=== PATIENT | female | born 1940 | race Caucasian/White ===

== ENCOUNTER → 2017-09-06 | Outpatient (CLI) | payer MEDICARE ==
[~2017-09-06] MED LIST: ALLO300; ASCO1ER; DESO.25TC; DULO30; FISH1000; GABA300; GLUCHON; GUAN1; HYDACE5; IBUP200; LEVFLO500 PO; PHENDIMETRAZINE; POTASSIUM GLUCONATE; POTCHL20ER PO; PSECHLCR; RXPROM25 PO; RXPROM25S PR; SEMPREX D; TOCO400; TRIHYD253A; VITB100; Vibramycin100 MG PO; ZOLP10; [UNRECOGNIZED DRUG - OTHER]; [UNRECOGNIZED DRUG - OTHER]; [UNRECOGNIZED DRUG - OTHER]
[2017-09-06 14:55] LABS: Source, Urine Clean Catch
[2017-09-06 16:00] LABS: Bilirubin, Urine Neg (Neg); Blood, Urine Neg (Neg); Glucose Qualitative, Urine Neg (Neg); Ketones, Urine Neg (Neg); Leukocyte Esterase, Urine 2+ (Neg); Nitrite, Urine Pos (Neg); Protein, Urine Neg (Neg); Urobilinogen, Urine NORM (Normal)
[2017-09-06 16:05] LABS: Appearance, Urine Clear (Clear); Color, Urine Yellow (P-Yellow)
[2017-09-06 16:06] LABS: Bacteria Many /hpf; Red Blood Cells, Urine 0-2 /hpf (0-2); Squamous Epithelial Cells Rare /hpf (Few)
[2017-09-06 17:50] LABS: Creatinine, Urine Random 49.4 mg/dL (27.00-270.00); Protein, Urine Random 11.2 mg/dL (0.0-11.9)
== END ==
LOC: OLS 14:26 → LAB SHORT 14:26
PROVIDERS: Internal Medicine
DX: N17.9 Acute kidney failure, unspecified (principal)
CPT/HCPCS: 81001; 82570; 84156

== ENCOUNTER 2020-01-29 09:04 | Inpatient (IN) | payer MEDICARE ==
[~2020-01-29] VITALS: Ht 167.6 cm; Wt 77.5 kg
[~2020-01-29 09:04] MED LIST changes: -ALLO300; -DULO30; -GABA300
[2020-01-29 10:03] LABS: BASOPHILS ABSOLUTE AUTO 0.06 K/mm3 (0.00-0.23); BASOPHILS PERCENT AUTO 0 % (0-2); EOSINOPHILS PERCENT AUTO 0 % (0-6); Hematocrit 41.1 % (33.0-51.0); Hemoglobin 13.1 g/dL (11.5-16.0); IMMATURE GRAN PERCENT AUTO 1 % (0-1); LYMPHOCYTES ABSOLUTE AUTO 1.44 K/mm3 (0.84-5.20); LYMPHOCYTES PERCENT AUTO 5 % (21-46); MONOCYTES ABSOLUTE AUTO 2.71 K/mm3 (0.16-1.47); MONOCYTES PERCENT AUTO 9 % (4-13); Mean Corpuscular HGB Conc 31.9 g/dL (31.5-36.5); Mean Corpuscular Volume 97 fL (80-100); Mean Platelet Volume 10.3 fL (9.1-12.4); NEUTROPHILS ABSOLUTE AUTO 26.98 K/mm3 (1.96-9.15); NEUTROPHILS PERCENT AUTO 86 % (41-73); Platelet Count 265 K/mm3 (150-400); RDW Coefficient Variation 14.5 % (11.7-14.2); RDW Standard Deviation 51.8 fL (35.1-46.3); Red Blood Cell Count 4.22 M/mm3 (3.80-5.20); White Blood Cell Count 31.39 K/mm3 (4.00-11.30)
[2020-01-29 10:34] LABS: Albumin, Blood 3.3 g/dL (3.4-5.0); Albumin/Globulin Ratio 0.8 (0.8-1.8); Bilirubin, Total 1.9 mg/dL (0.1-1.0); Bun/Creatinine Ratio 23.7 (12.0-20.0); Calcium, Blood 9.8 mg/dL (8.5-10.1); Creatine Kinase MB 8.9 ng/mL (0.0-3.6); Creatinine, Blood 1.35 mg/dL (0.40-1.00); Globulin, Blood 3.9 g/dL (2.2-4.0); Potassium, Blood 4.2 mmol/L (3.5-5.5); Total Protein, Blood 7.2 g/dL (6.4-8.2)
[2020-01-29 10:36] LABS: Creatine Kinase MB Index 0.6 (0.0-4.0)
[2020-01-29 12:19] LABS: Source, Urine Clean Catch
[2020-01-29 12:24] LABS: Appearance, Urine Cloudy (Clear); Bilirubin, Urine Neg (Neg); Blood, Urine 5+ (Neg); Color, Urine Yellow (P-Yellow); Glucose Qualitative, Urine Neg (Neg); Ketones, Urine 1+ (Neg); Leukocyte Esterase, Urine 1+ (Neg); Nitrite, Urine Pos (Neg); Protein, Urine 3+ (Neg); Urobilinogen, Urine NORM (Normal)
[2020-01-29 12:38] LABS: Amorphous Light (0-Heavy); Bacteria Many /hpf; Squamous Epithelial Cells Mod /hpf (Few)
--- NOTE | 2020-01-29 12:58 | NUR ---
Upon responding to a trauma team activation, I visit patient. Daughter Harmony is present in the room as well as patient's home care scheduler. I conduct a a life review of patient and via Harmony and provide reassuring words to patient as patient appears fearful and confused. I provide a calming presence for all in the rm. I will continue to remain available to patient and family.
[2020-01-29] MEDS ORDERED: DULO30 PO (13:05)
[2020-01-29] MEDS ORDERED: ALLEGRA-D 12 H1 EACH PO (13:05)
[2020-01-29] MEDS ORDERED: TELMISARTAN20 MG PO (13:06)
[2020-01-29] MEDS ORDERED: ALLO300 PO (13:07)
[2020-01-29] MEDS ORDERED: ATORVASTATIN CA20 MG PO (13:10)
[2020-01-29] MEDS ORDERED: TRAMADOL PO (13:10)
[2020-01-29] MEDS ORDERED: ACETAMINOPHEN PO (13:10)
[2020-01-29] MEDS ORDERED: GABA300 PO (13:11)
[2020-01-29] MEDS ORDERED: FLUTICASONE PRO16 GM (13:12)
[2020-01-29 17:31] LABS: Source, Urine Catheter
[2020-01-29 17:35] LABS: Bilirubin, Urine Neg (Neg); Blood, Urine 5+ (Neg); Glucose Qualitative, Urine Neg (Neg); Ketones, Urine Neg (Neg); Leukocyte Esterase, Urine 1+ (Neg); Nitrite, Urine Pos (Neg); Protein, Urine 3+ (Neg); Urobilinogen, Urine NORM (Normal)
[2020-01-29 17:42] LABS: Appearance, Urine Hazy (Clear); Color, Urine Yellow (P-Yellow)
[2020-01-29 17:50] LABS: Bacteria Mod /hpf; Red Blood Cells, Urine 50-100 /hpf (0-2); Squamous Epithelial Cells Rare /hpf (Few)
[2020-01-30 04:29] LABS: BASOPHILS ABSOLUTE AUTO 0.06 K/mm3 (0.00-0.23); BASOPHILS PERCENT AUTO 0 % (0-2); EOSINOPHILS ABSOLUTE AUTO 0.02 K/mm3 (0.00-0.68); EOSINOPHILS PERCENT AUTO 0 % (0-6); Hematocrit 37.3 % (33.0-51.0); Hemoglobin 11.7 g/dL (11.5-16.0); IMMATURE GRAN PERCENT AUTO 0 % (0-1); LYMPHOCYTES PERCENT AUTO 9 % (21-46); MONOCYTES ABSOLUTE AUTO 1.43 K/mm3 (0.16-1.47); MONOCYTES PERCENT AUTO 6 % (4-13); Mean Corpuscular HGB 30.5 pg (26.0-34.0); Mean Corpuscular HGB Conc 31.4 g/dL (31.5-36.5); Mean Corpuscular Volume 97 fL (80-100); Mean Platelet Volume 10.3 fL (9.1-12.4); NEUTROPHILS ABSOLUTE AUTO 18.92 K/mm3 (1.96-9.15); NEUTROPHILS PERCENT AUTO 84 % (41-73); Platelet Count 228 K/mm3 (150-400); RDW Coefficient Variation 14.6 % (11.7-14.2); RDW Standard Deviation 52.2 fL (35.1-46.3); Red Blood Cell Count 3.84 M/mm3 (3.80-5.20); White Blood Cell Count 22.43 K/mm3 (4.00-11.30)
[2020-01-30 04:54] LABS: Albumin, Blood 2.7 g/dL (3.4-5.0); Albumin/Globulin Ratio 0.8 (0.8-1.8); Bilirubin, Total 1.2 mg/dL (0.1-1.0); Bun/Creatinine Ratio 22.3 (12.0-20.0); Calcium, Blood 8.6 mg/dL (8.5-10.1); Creatinine, Blood 1.12 mg/dL (0.40-1.00); Globulin, Blood 3.3 g/dL (2.2-4.0); Potassium, Blood 3.4 mmol/L (3.5-5.5)
--- NOTE | 2020-01-30 04:59 | NUR ---
ASSUMED CARE OF PATIENT AT 1915. PATIENT ONLY ALERT TO SELF. PATIENT STATES THAT SHE IS UNAWARE OF THE EVNTS THAT LED TO HER HOSPITILIZATION. CONCERN FOR RHABDO DUE TO INJURIES, HERZOG IN PLACE FOR ACCURATE I/O'S. EDUCATED PATIENT ON NEED FOR CALL LIGHT FOR ANY AMBULATION DUE TO WEAKNESS AND RISK FOR FALLS. CALL LIGHT WITHIN REACH, BED LOWERED TO LOWEST POSITION. WILL CONTINUE TO MONITOR UNTIL END OF SHIFT.
--- NOTE | 2020-01-30 08:00 | NUR ---
AM ASSESSMENT: Pt resting in bed. Oriented to self, family and knows she is in a hospital. Unsure of place, time and situation. Pt very cooperative. HR tachycardic in the 110's. BP elevated. Will inform physician. Pt C/O back and R side pain. Will treat per orders. Pt has multiple bruises over extrimeties, back, side. Abrasion noted on R knee. Pt bed alarm on. Carreon cath draining clear, yellow urine. Will continue to monitor and treat.
--- NOTE | 2020-01-30 12:46 | NUR ---
Report given to Rebecca FRIEDMAN. Pt to be transfered to room 339. Pt worked with PT, and [facility] at bedside. Will transfer via bed. Stable at time of transfer.
--- NOTE | 2020-01-30 16:18 | NUR ---
SHIFT SUMMARY PCU TRANSFER THIS AFTERNOON. PATIENT DENIES PAIN, NAUSEA, AND SHORTNESS OF BREATH. PATIENT PAINFUL WITH MOVEMENT. PATIENT UP ONE ASSIST WITH GAIT BELT AND FWW TO CHAIR. DAUGHTER AT BEDSIDE. HERZOG PATENT AND DRAINING. PATIENT RESTING IN BED. CALL LIGHT IN REACH.
--- NOTE | 2020-01-31 04:43 | NUR ---
SHIFT SUMMARY PT HAS RESTED WELL THIS SHIFT. MEDICATED X1 FOR PAIN WITH TYLENOL. SHE CONTINUES TO BE PAINFUL WITH VERY LITTLE MOVEMENT. THIS SHIFT SHE REPORTED PAIN IN HER SHOULDER BLADES. TYLENOL ADEQUATELY CONTROLLED HER PAIN. PT IS A/OX3, HOWEVER SHE CONTINUES TO HAVE NO RECOLLECTION OF EVENTS LEADING UP TO HER HOSPITLIZATION. NO ACUTE CHANGES OVERNIGHT. PT PLESANT WITH CARE, AND APPRECIATIVE OF THE CARE SHE HAS RECEIVED WHILE HERE.
[2020-01-31 05:25] LABS: BASOPHILS ABSOLUTE AUTO 0.06 K/mm3 (0.00-0.23); BASOPHILS PERCENT AUTO 0 % (0-2); EOSINOPHILS ABSOLUTE AUTO 0.28 K/mm3 (0.00-0.68); EOSINOPHILS PERCENT AUTO 2 % (0-6); Hematocrit 34.8 % (33.0-51.0); Hemoglobin 10.9 g/dL (11.5-16.0); IMMATURE GRAN ABSOLUTE AUTO 0.07 K/mm3 (0.00-0.10); IMMATURE GRAN PERCENT AUTO 1 % (0-1); LYMPHOCYTES ABSOLUTE AUTO 2.16 K/mm3 (0.84-5.20); LYMPHOCYTES PERCENT AUTO 14 % (21-46); MONOCYTES ABSOLUTE AUTO 1.36 K/mm3 (0.16-1.47); MONOCYTES PERCENT AUTO 9 % (4-13); Mean Corpuscular HGB Conc 31.3 g/dL (31.5-36.5); Mean Corpuscular Volume 99 fL (80-100); Mean Platelet Volume 10.3 fL (9.1-12.4); NEUTROPHILS ABSOLUTE AUTO 11.35 K/mm3 (1.96-9.15); NEUTROPHILS PERCENT AUTO 74 % (41-73); NRBC ABSOLUTE 0.03 K/mm3 (0.00-0.02); NRBC Auto 0.2 /100 WBC (0.0-0.2); Platelet Count 196 K/mm3 (150-400); RDW Coefficient Variation 14.9 % (11.7-14.2); RDW Standard Deviation 53.7 fL (35.1-46.3); Red Blood Cell Count 3.52 M/mm3 (3.80-5.20); White Blood Cell Count 15.28 K/mm3 (4.00-11.30)
[2020-01-31 05:48] LABS: Albumin, Blood 2.4 g/dL (3.4-5.0); Anion Gap 8 mmol/L (6-16); Blood Urea Nitrogen 25 mg/dL (8-24); CO2, Blood 25 mmol/L (21-32); CPK Creatine Kinase 226 U/L (26-193); Calcium, Blood 8.1 mg/dL (8.5-10.1); Chloride, Blood 108 mmol/L (98-108); Creatinine, Blood 1.25 mg/dL (0.40-1.00); Glomerular Filtration Rate 44 (60-); Glucose, Blood 109 mg/dL (70-99); Phosphorus, Blood 3.2 mg/dL (2.5-4.9); Potassium, Blood 3.9 mmol/L (3.5-5.5); Sodium, Blood 141 mmol/L (136-145)
--- NOTE | 2020-01-31 17:18 | NUR ---
SHIFT SUMMARY PATIENT MEDICATED X2 FOR PAIN THIS SHIFT. PATIENT DENIES NAUSEA AND SHORTNESS OF BREATH. PATIENT UP ONE ASSIST W/FWW TO CHAIR/BSC. PATIENT SAT IN RECLINER THIS AFTERNOON. DAUGHTER AT BEDSIDE. ROSENDA ROBERT. PROBABLE DISCHARGE TOMORROW. CALL LIGHT IN REACH.
--- NOTE | 2020-02-01 04:47 | NUR ---
SHIFT SUMMARY PT HAS RESTED MOST OF THE NIGHT. MEDICATED X1 FOR PAIN RELATED TO FALL WITH EFFECT. PT A/OX4. VITALS ARE TRENDING AROUND PT BASELINE. HYPERTENSIVE. PRN HYDRALYZINE ORDERED FOR SBP GREATER THAN 160. PT BP HAS NOT GONE OVER THIS NUMBER. PT HAS BEEN ABLE TO AMBULATE WITH 1 PA USING THE FWW TO THE BATHROOM. PT HAS TOLERATED AMBULATION WELL. PT AWOKE WITH SOME ANXIETY THIS SHIFT. AFTER TALKING WITH ALLANTENT, SHE SEEMED TO CALM. NO ACUTE CHANGES IN PT ASSESSMENT. PLAN IS FOR POSS DC TODAY.
[2020-02-01 05:35] LABS: BASOPHILS ABSOLUTE AUTO 0.05 K/mm3 (0.00-0.23); BASOPHILS PERCENT AUTO 0 % (0-2); EOSINOPHILS ABSOLUTE AUTO 0.42 K/mm3 (0.00-0.68); EOSINOPHILS PERCENT AUTO 3 % (0-6); Hemoglobin 11.6 g/dL (11.5-16.0); IMMATURE GRAN ABSOLUTE AUTO 0.05 K/mm3 (0.00-0.10); IMMATURE GRAN PERCENT AUTO 0 % (0-1); LYMPHOCYTES ABSOLUTE AUTO 1.76 K/mm3 (0.84-5.20); LYMPHOCYTES PERCENT AUTO 14 % (21-46); MONOCYTES ABSOLUTE AUTO 1.05 K/mm3 (0.16-1.47); MONOCYTES PERCENT AUTO 8 % (4-13); Mean Corpuscular HGB 30.6 pg (26.0-34.0); Mean Corpuscular HGB Conc 31.4 g/dL (31.5-36.5); Mean Corpuscular Volume 98 fL (80-100); Mean Platelet Volume 10.2 fL (9.1-12.4); NEUTROPHILS ABSOLUTE AUTO 9.33 K/mm3 (1.96-9.15); NEUTROPHILS PERCENT AUTO 74 % (41-73); Platelet Count 214 K/mm3 (150-400); RDW Coefficient Variation 14.6 % (11.7-14.2); RDW Standard Deviation 52.4 fL (35.1-46.3); Red Blood Cell Count 3.79 M/mm3 (3.80-5.20); White Blood Cell Count 12.66 K/mm3 (4.00-11.30)
[2020-02-01 06:00] LABS: Albumin, Blood 2.4 g/dL (3.4-5.0); Anion Gap 8 mmol/L (6-16); Blood Urea Nitrogen 23 mg/dL (8-24); Bun/Creatinine Ratio 20.9 (12.0-20.0); CO2, Blood 26 mmol/L (21-32); Chloride, Blood 106 mmol/L (98-108); Glomerular Filtration Rate 51 (60-); Glucose, Blood 112 mg/dL (70-99); Phosphorus, Blood 3.2 mg/dL (2.5-4.9); Potassium, Blood 3.9 mmol/L (3.5-5.5); Sodium, Blood 140 mmol/L (136-145)
--- NOTE | 2020-02-01 12:00 | NUR ---
Advance Directive Education/Spiritual Care visit conducted. Patient has ancillary services working with her but patient's daughter Harmony came out of patient's to talk with me. We discussed the mystery surrounding the events that happened at patient's house prior to her hospital stay and that no new information has arisen. Harmony talked with me about her interest in filling out an Advance Directive(AD) for her mom and her step father. I explain about the sections and the filing process. I will continue to remain available to patient and family.
--- NOTE | 2020-02-01 16:04 | NUR ---
SHIFT SUMMARY- PT ALERT AND ORIENTED, 1P SBA TO THE BATHROOM AND WITH TRANSFERS. PT C/O SOME CONFUSION THIS MORNING. PT DENIED THE NEED FOR ANY PAIN OR NAUSEA MEDICATIONS FOR MOST OF THE DAY AT THE START OF THE SHIFT SHE C/O NAUSEA, PROVIDED SALTINE CRACKERS PT DID NOT WANT MEDICATION AND THIS HELPED. THIS AFTERNOON PT C/O TERRIBLE PAIN IN HER HEAD RATED 6/10 MEDICATED WITH TYLENOL PT REQUESTED NAUSEA MEDICATION AND WAS MEDICATED WITH IV ZOFRAN. CAME TO SEE HER FOR A SECOND TIME TODAY. PLAN IS FOR POSSIBLE DC TOMORROW. NEW ORDER FOR CHEST XR. CALLED DR ROBERTS SPOKE TO HER EARLIER IN THE SHIFT PLAN WAS FOR POSSIBLE DC HOME TODAY. PT BP ELEVATED 175/105 MEDICATED WITH PO BP MEDS RECHECK (1HR) 165/95. CALLED TO BE SURE IV MEDICATION WAS TO BE GIVEN AT THAT TIME D/T THE CURRENT PLAN FOR DC HOME. STATED USE IV MEDICATION AND RECHECK BP IN 2 HOURS. BP RECHECK AT 1300 WAS 135/85. DR AWARE. FAMILY AND CAREGIVER HAVE BEEN AT THE BEDSIDE OFF AND ON THROUGH THE SHIFT PT SPOUSE IS IN ROOM 330 WAS FOUND DOWN BY THE SAME CAREGIVER WHO FOUND THE PT DOWN. PT CURRENTLY IN BED, CALL LIGHT IN REACH, BED ALARM FOR SAFETY. NO S&S OF DISTRESS NOTED. WILL CTM AND PASS ON TO NIGHT RN IN REPORT.
--- NOTE | 2020-02-01 19:30 | NUR ---
ASSUMED CARE RECEIVED REPORT FROM IDALIA ALMONTE. ASSUMED CARE OF PT. RESTING COMFORTABLY AT THIS TIME, NO S/S ACUTE DISTRESS NOTED. DENIES NEEDS. CALL LIGHT, POSSESSIONS IN REACH. WILL CONTINUE TO MONITOR.
--- NOTE | 2020-02-02 04:16 | NUR ---
SHIFT SUMMARY PT ASLEEP AT THIS TIME, NO S/S ACUTE DISTRESS NOTED. NO ACUTE CHANGES IN CONDITION T/O NIGHT, SLEPT T/O. VS STABLE. PAIN MANAGED WITH MEDS PER EMAR AND UNINTERRUPTED REST. CALL LIGHT, POSSESSIONS IN REACH, BED IN LOWEST POSITION. WILL CONTINUE TO MONITOR UNTIL DAY RN ASSUMES CARE.
[2020-02-02 05:01] LABS: BASOPHILS ABSOLUTE AUTO 0.06 K/mm3 (0.00-0.23); BASOPHILS PERCENT AUTO 1 % (0-2); EOSINOPHILS PERCENT AUTO 4 % (0-6); Hematocrit 36.9 % (33.0-51.0); Hemoglobin 11.7 g/dL (11.5-16.0); IMMATURE GRAN ABSOLUTE AUTO 0.03 K/mm3 (0.00-0.10); IMMATURE GRAN PERCENT AUTO 0 % (0-1); LYMPHOCYTES ABSOLUTE AUTO 1.86 K/mm3 (0.84-5.20); LYMPHOCYTES PERCENT AUTO 16 % (21-46); MONOCYTES ABSOLUTE AUTO 0.97 K/mm3 (0.16-1.47); MONOCYTES PERCENT AUTO 8 % (4-13); Mean Corpuscular HGB 31.1 pg (26.0-34.0); Mean Corpuscular HGB Conc 31.7 g/dL (31.5-36.5); Mean Corpuscular Volume 98 fL (80-100); NEUTROPHILS ABSOLUTE AUTO 8.19 K/mm3 (1.96-9.15); NEUTROPHILS PERCENT AUTO 71 % (41-73); Platelet Count 235 K/mm3 (150-400); RDW Coefficient Variation 14.7 % (11.7-14.2); RDW Standard Deviation 52.6 fL (35.1-46.3); Red Blood Cell Count 3.76 M/mm3 (3.80-5.20); White Blood Cell Count 11.51 K/mm3 (4.00-11.30)
[2020-02-02 05:21] LABS: Albumin, Blood 2.6 g/dL (3.4-5.0); Anion Gap 6 mmol/L (6-16); Blood Urea Nitrogen 18 mg/dL (8-24); CO2, Blood 28 mmol/L (21-32); Chloride, Blood 105 mmol/L (98-108); Creatinine, Blood 1.06 mg/dL (0.40-1.00); Glomerular Filtration Rate 53 (60-); Glucose, Blood 109 mg/dL (70-99); Phosphorus, Blood 3.8 mg/dL (2.5-4.9); Potassium, Blood 4.2 mmol/L (3.5-5.5); Sodium, Blood 139 mmol/L (136-145)
[2020-02-02] MEDS ORDERED: METO25 PO (12:17)
[2020-02-02] MEDS ORDERED: CEFU500T30 PO (12:20)
[2020-02-02] MEDS ORDERED: PROBIOTIC & AC1 EACH PO (12:23)
--- NOTE | 2020-02-02 15:42 | NUR ---
DISCHARGE NOTE: PATIENT DISCHARGED TO HOME. DAUGHTER WITH PATIENT, D/C INSTRUCTIONS REVIEWED WITH PATIENT AND DAUGHTER.
--- NOTE | 2020-02-02 17:45 | NUR ---
Pal care note: Met with pt's daughter Beatrice at her request to review and complete POLST/AD for her mom. Pt is being readied for d/c home today with family and cg. Maribel and I to review blank forms tomorrow so that family can complete together and review with pt's PCP at her next appointment. Gave maribel instructions to make sure all pt's drs had a copy and hospital provided with a copy once completed. Maribel states her mom would want full treatment, full code. Maribel assured that pt's current orders are in agreement with her wishes. I also gave maribel booklet "Hard choices for loving people" to review before our next meeting to help generate questions and discuss advanced care planning tomorrow.
== END 2020-02-02 15:30 | disposition home or self-care (01) | DRG 871 ==
LOC: ER 09:04 → PCU 15:47 → MEDS 16:02 → PCU 17:12 → MEDS 01-30 13:45
PROVIDERS: Emergency Medicine; Family Medicine; Nurse Practitioner Acute Care; ADMIT Hospitalist
DX: A41.51 Sepsis due to Escherichia coli [E. coli] (principal); G92 Toxic encephalopathy; N39.0 Urinary tract infection, site not specified; M62.82 Rhabdomyolysis; E86.0 Dehydration; E87.6 Hypokalemia; M19.90 Unspecified osteoarthritis, unspecified site; N18.3 Chronic kidney disease, stage 3 (moderate); I12.9 Hypertensive chronic kidney disease with stage 1 through stage 4 chronic kidney disease, or unspecified chronic kidney disease; E78.5 Hyperlipidemia, unspecified; E07.9 Disorder of thyroid, unspecified; R29.6 Repeated falls; Z91.81 History of falling; S32.039D Unspecified fracture of third lumbar vertebra, subsequent encounter for fracture with routine healing
CPT/HCPCS: 36415; 70450; 70496; 70498; 71046; 72080; 72125; 80053; 80069; 81001; 82550; 82553; 83605; 84443; 85025; 87040; 87077; 87086; 87186; 92523; 93005; 93010; 96361; 96365-59; 97110; 97116; 97162; 97166; 97530; 99285-25; A9270; A9270-GY; J0360; J0696; J2405; J7030; J7120; P9612; Q9967

== ENCOUNTER → 2020-06-21 | Outpatient (CLI) | payer MEDICARE ==
[~2020-06-21] MED LIST changes: +ACETAMINOPHEN PO; +ALLEGRA-D 12 H1 EACH PO; +ALLO300 PO; +ATORVASTATIN CA20 MG PO; +CEFU500T30 PO; +DULO30 PO; +FLUTICASONE PRO16 GM; +GABA300 PO; +METO25 PO; +PROBIOTIC & AC1 EACH PO; +TELMISARTAN20 MG PO; +TRAMADOL PO
== END ==
LOC: LAB EV 16:51
DX: N18.30 Chronic kidney disease, stage 3 unspecified (principal)
CPT/HCPCS: 84156

== ENCOUNTER 2022-01-22 18:49 | Observation (INO) | payer MEDICARE ==
[~2022-01-22] VITALS: Ht 162.6 cm; Wt 79.0 kg
[2022-01-22 19:04] LABS: BASOPHILS ABSOLUTE AUTO 0.04 K/mm3 (0.00-0.23); BASOPHILS PERCENT AUTO 0 % (0-2); EOSINOPHILS ABSOLUTE AUTO 0.48 K/mm3 (0.00-0.68); EOSINOPHILS PERCENT AUTO 4 % (0-6); Hematocrit 36.7 % (33.0-51.0); Hemoglobin 11.7 g/dL (11.5-16.0); IMMATURE GRAN ABSOLUTE AUTO 0.05 K/mm3 (0.00-0.10); IMMATURE GRAN PERCENT AUTO 0 % (0-1); LYMPHOCYTES ABSOLUTE AUTO 1.86 K/mm3 (0.84-5.20); LYMPHOCYTES PERCENT AUTO 14 % (21-46); MONOCYTES ABSOLUTE AUTO 0.86 K/mm3 (0.16-1.47); MONOCYTES PERCENT AUTO 6 % (4-13); Mean Corpuscular HGB 30.9 pg (26.0-34.0); Mean Corpuscular HGB Conc 31.9 g/dL (31.5-36.5); Mean Corpuscular Volume 97 fL (80-100); Mean Platelet Volume 10.5 fL (9.1-12.4); NEUTROPHILS ABSOLUTE AUTO 10.46 K/mm3 (1.96-9.15); NEUTROPHILS PERCENT AUTO 76 % (41-73); Platelet Count 217 K/mm3 (150-400); RDW Coefficient Variation 14.9 % (11.7-14.2); RDW Standard Deviation 53.2 fL (35.1-46.3); Red Blood Cell Count 3.79 M/mm3 (3.80-5.20); White Blood Cell Count 13.75 K/mm3 (4.00-11.30)
[2022-01-22 19:35] LABS: International Normalized Ratio 0.93; Prothrombin Time Results 9.8 Sec (9.7-11.5)
[2022-01-22] MEDS ORDERED: TELM20 PO (19:57)
[2022-01-22] MEDS ORDERED: ALLO300 PO (19:58)
[2022-01-22] MEDS ORDERED: LEVOCETIRIZINE D5 MG PO (19:58)
[2022-01-22] MEDS ORDERED: DESV50 PO (19:59)
[2022-01-22] MEDS ORDERED: VITAMIN C D PO (20:00)
[2022-01-22] MEDS ORDERED: GLUCOSAMINE PO (20:00)
[2022-01-22] MEDS ORDERED: METO50ER PO (20:01)
[2022-01-22] MEDS ORDERED: ATOR20 PO (20:01)
[2022-01-22] MEDS ORDERED: IPRATROPIUM BRO30 ML (20:01)
[2022-01-22] MEDS ORDERED: GABA300 PO (20:02)
[2022-01-22] MEDS ORDERED: CEFP500 PO (20:04)
[2022-01-22] MEDS ORDERED: CODEINE-GUAIFE120 M1 PO (20:04)
[2022-01-22 20:44] LABS: Albumin, Blood 2.9 g/dL (3.4-5.0); Albumin/Globulin Ratio 0.9 (0.8-1.8); Bilirubin, Total 0.4 mg/dL (0.1-1.0); Bun/Creatinine Ratio 25.7 (12.0-20.0); Calcium, Blood 8.9 mg/dL (8.5-10.1); Creatinine, Blood 1.4 mg/dL (0.40-1.00); Globulin, Blood 3.4 g/dL (2.2-4.0); Potassium, Blood 4.8 mmol/L (3.5-5.5); Total Protein, Blood 6.3 g/dL (6.4-8.2)
--- NOTE | 2022-01-23 00:51 | NUR ---
01/22/22 2320 PT ARRIVED VIA STRETCHER TO ROOM 308. PT IS ALERT AND ORIENTED. SHE IS SO PLEASANT AND LOVES TO LAUGH. PT SPEECH SEEMS NORMAL TO ME BUT SHE FEELS SHE IS NOT QUITE BACK TO BASLINE. PT HAS EQUAL ENERGY CONSERVATION ENGINEER, GENERALIZED WEAKNEES, USES WALKER AT HOME. PT JOINTS 'TULE RIVER' WHEN SHE MOVES. PT DOES REPEAT SELF A LITTLE. UP TO [facility], DID NOT VOID. WEARS A PAD FOR INCONTINENCE. PT HAS RED EXCORIATED SKIN TO [place], SHE STATES IT IS FROM THE ATTENDS. SKIN IS FRAGILE, A FEW SM BRUISES ON ARMS. ORIENTED TO ROOM AND CALL LIGHT IN REACH.
[2022-01-23] MEDS ORDERED: MONT10T PO (01:26)
[2022-01-23] MEDS ORDERED: CODEINE-GUAIFE120 M1 PO (01:33)
[2022-01-23] MEDS ORDERED: VITAMIN D PO (01:34)
[2022-01-23] MEDS ORDERED: ASCO500 PO (01:35)
[2022-01-23] MEDS ORDERED: VITAMIN B-6 PO (01:35)
[2022-01-23 04:36] LABS: BASOPHILS ABSOLUTE AUTO 0.05 K/mm3 (0.00-0.23); BASOPHILS PERCENT AUTO 1 % (0-2); EOSINOPHILS ABSOLUTE AUTO 0.51 K/mm3 (0.00-0.68); EOSINOPHILS PERCENT AUTO 5 % (0-6); Hematocrit 35.2 % (33.0-51.0); IMMATURE GRAN ABSOLUTE AUTO 0.03 K/mm3 (0.00-0.10); IMMATURE GRAN PERCENT AUTO 0 % (0-1); LYMPHOCYTES ABSOLUTE AUTO 2.29 K/mm3 (0.84-5.20); LYMPHOCYTES PERCENT AUTO 21 % (21-46); MONOCYTES ABSOLUTE AUTO 0.64 K/mm3 (0.16-1.47); MONOCYTES PERCENT AUTO 6 % (4-13); Mean Corpuscular HGB 30.8 pg (26.0-34.0); Mean Corpuscular HGB Conc 31.3 g/dL (31.5-36.5); Mean Corpuscular Volume 99 fL (80-100); Mean Platelet Volume 10.6 fL (9.1-12.4); NEUTROPHILS ABSOLUTE AUTO 7.46 K/mm3 (1.96-9.15); NEUTROPHILS PERCENT AUTO 68 % (41-73); Platelet Count 203 K/mm3 (150-400); RDW Coefficient Variation 14.8 % (11.7-14.2); RDW Standard Deviation 53.3 fL (35.1-46.3); Red Blood Cell Count 3.57 M/mm3 (3.80-5.20); White Blood Cell Count 10.98 K/mm3 (4.00-11.30)
[2022-01-23 05:06] LABS: Albumin, Blood 2.6 g/dL (3.4-5.0); Albumin/Globulin Ratio 0.8 (0.8-1.8); Bilirubin, Total 0.5 mg/dL (0.1-1.0); Bun/Creatinine Ratio 24.6 (12.0-20.0); Calcium, Blood 8.8 mg/dL (8.5-10.1); Creatinine, Blood 1.34 mg/dL (0.40-1.00); Globulin, Blood 3.1 g/dL (2.2-4.0); Potassium, Blood 4.4 mmol/L (3.5-5.5); Total Protein, Blood 5.7 g/dL (6.4-8.2)
--- NOTE | 2022-01-23 06:06 | NUR ---
Rn summary: Patient has rested well this shift. She remains alert and oriented. Up to BSC to void with 1 assist . Pt states she is doing well. No speech problems noted this am. Call light remians in reach.
--- NOTE | 2022-01-23 16:39 | NUR ---
DAY SHIFT SUMMARY PT TO BE DISCHARGED HOME TODAY. 81 YR OLD FEMALE WITH ACUTE STROKE, ECHO AND SPEECH EVAL PERFORMED THIS SHIFT. CALL LIGHT WTHIN REACH AND ABLE TO CALL APPROPRIATE, FAMILY AT BEDSIDE.
[2022-01-23] MEDS ORDERED: ASPI81CH PO (17:09)
--- NOTE | 2022-01-23 17:54 | NUR ---
DISCHARGE SUMMARY IV AND TELE REMOVED PRIOR TO DISCHARGE, MEDS FAXED TO PHARMACY, PERSONAL BELONGINGS GATHERED AND TRANSPORTED ALONG WITH PT VIA WHEELCHAIR TO PT'S DAUGHTER'S VEHICLE WAITING AT EXIT.
== END 2022-01-23 17:56 | disposition home or self-care (01) ==
LOC: ER 18:49 → MEDS 18:50 → ER 21:05 → MEDS 21:05 → ER 22:56 → MEDS 23:18
PROVIDERS: Student in an Organized Health Care Education/Training Program; ADMIT Internal Medicine
DX: I63.89 Other cerebral infarction (principal); R47.1 Dysarthria and anarthria; I12.9 Hypertensive chronic kidney disease with stage 1 through stage 4 chronic kidney disease, or unspecified chronic kidney disease; N18.30 Chronic kidney disease, stage 3 unspecified; R29.702 NIHSS score 2; E78.5 Hyperlipidemia, unspecified; R05.3 Chronic cough; E04.9 Nontoxic goiter, unspecified; J18.9 Pneumonia, unspecified organism; I27.20 Pulmonary hypertension, unspecified; Z91.048 Other nonmedicinal substance allergy status
CPT/HCPCS: 36415; 70450; 70496; 70498; 71045; 80053; 82947; 85025; 85610; 85730; 92610; 93005; 93010; 93306; 99285-25; A9270; G0378; J0696; J1650; Q3014; Q9967

== ENCOUNTER → 2022-04-17 | Outpatient (CLI) | payer MEDICARE ==
[~2022-04-17] MED LIST changes: +ASCO500 PO; +ASPI81CH PO; +ATOR20 PO; +CEFP500 PO; +CODEINE-GUAIFE120 M1 PO; +DESV50 PO; +GLUCOSAMINE PO; +IPRATROPIUM BRO30 ML; +LEVOCETIRIZINE D5 MG PO; +METO50ER PO; +MONT10T PO; +TELM20 PO; +VITAMIN B-6 PO; +VITAMIN C D PO; +VITAMIN D PO
[2022-04-17 19:18] LABS: Protein, Urine Random 39.8 mg/dL (0.0-11.9); Protein/Creat Ratio, Ur Random 0.2
[2022-04-17 19:19] LABS: Appearance, Urine Hazy (Clear); Bilirubin, Urine Neg (Neg); Blood, Urine 2+ (Neg); Color, Urine Yellow (P-Yellow); Glucose Qualitative, Urine Neg (Neg); Ketones, Urine Neg (Neg); Leukocyte Esterase, Urine 3+ (Neg); Nitrite, Urine Neg (Neg); Protein, Urine 2+ (Neg); Specific Gravity, Urine 1.015 (1.003-1.022); Urobilinogen, Urine NORM (Normal)
[2022-04-17 19:36] LABS: Bacteria Many /hpf; Squamous Epithelial Cells Many /hpf (Few); White Blood Cells, Urine TNTC /hpf (0-5)
[2022-04-17 19:37] LABS: Hyaline Casts 0-2 /lpf (0-2); Transitional Epithelial Cells Rare /hpf (0-Rare)
[2022-04-17 19:38] LABS: Granular Casts 0-2 /lpf (0)
== END | disposition home or self-care (01) ==
LOC: LAB SHORT 11:30 → LAB 11:30
PROVIDERS: Internal Medicine Nephrology
DX: N18.32 Chronic kidney disease, stage 3b (principal)
CPT/HCPCS: 81001; 82570; 84156

== ENCOUNTER 2023-04-24 10:10 | Inpatient (IN) | payer MEDICARE ==
[~2023-04-24] VITALS: Ht 162.6 cm; Wt 68.5 kg
[2023-04-24 10:55] LABS: BASOPHILS ABSOLUTE AUTO 0.05 K/mm3 (0.00-0.23); BASOPHILS PERCENT AUTO 0 % (0-2); EOSINOPHILS PERCENT AUTO 1 % (0-6); Hematocrit 42.1 % (33.0-51.0); Hemoglobin 13.4 g/dL (11.5-16.0); IMMATURE GRAN ABSOLUTE AUTO 0.04 K/mm3 (0.00-0.10); IMMATURE GRAN PERCENT AUTO 0 % (0-1); LYMPHOCYTES ABSOLUTE AUTO 1.96 K/mm3 (0.84-5.20); LYMPHOCYTES PERCENT AUTO 13 % (21-46); MONOCYTES ABSOLUTE AUTO 1.07 K/mm3 (0.16-1.47); MONOCYTES PERCENT AUTO 7 % (4-13); Mean Corpuscular HGB 30.6 pg (26.0-34.0); Mean Corpuscular HGB Conc 31.8 g/dL (31.5-36.5); Mean Corpuscular Volume 96 fL (80-100); Mean Platelet Volume 10.5 fL (9.1-12.4); NEUTROPHILS ABSOLUTE AUTO 12.01 K/mm3 (1.96-9.15); NEUTROPHILS PERCENT AUTO 79 % (41-73); Platelet Count 279 K/mm3 (150-400); RDW Coefficient Variation 14.6 % (11.7-14.2); RDW Standard Deviation 51.2 fL (35.1-46.3); Red Blood Cell Count 4.38 M/mm3 (3.80-5.20); White Blood Cell Count 15.23 K/mm3 (4.00-11.30)
[2023-04-24 11:39] LABS: Albumin, Blood 3.2 g/dL (3.4-5.0); Albumin/Globulin Ratio 0.8 (0.8-1.8); Bilirubin, Total 0.8 mg/dL (0.1-1.0); Bun/Creatinine Ratio 32.1 (12.0-20.0); Calcium, Blood 9.1 mg/dL (8.5-10.1); Creatinine, Blood 2.15 mg/dL (0.40-1.00); Globulin, Blood 4.1 g/dL (2.2-4.0); Magnesium, Blood 1.6 mg/dL (1.6-2.4); Potassium, Blood 4.1 mmol/L (3.5-5.5); Total Protein, Blood 7.3 g/dL (6.4-8.2)
[2023-04-24 16:25] VITALS: BP 105/68
--- NOTE | 2023-04-24 18:17 | NUR ---
SHIFT SUMMARY PATIENT HAD A FALL AT HOME. INCREASED PAIN TO R CHEST/FLANK AREA. PATIENT ALERT AND INTERACTIVE. FORGETFUL BUT EASILY REORIENTED. REFERS TO DAUGHTER FOR MEDICAL INFORMATION AND MEDICATIONS. BRUISING NOTED ON R FLANK AND L LOWER LEG. PATIENT MEDICATED WITH NORCO AND HEATING PAD PROVIDED. PATIENT USES WALKER AT HOME FOR AMBULATION. CURRENTLY HAS CAREGIVERS IN THE MORNING 5 DAYS A WEEK TO HELP WITH BATHING AND DRESSING. PATIENT CURRENTLY LIVES ALONE BUT HAS FAMILY IN THE AREA.
[2023-04-24] MEDS ORDERED: IPRATROPIUM BRO15 ML (18:24)
[2023-04-24 20:16] VITALS: BP 119/76
[2023-04-25 04:47] VITALS: BP 139/73
[2023-04-25 05:28] LABS: BASOPHILS ABSOLUTE AUTO 0.04 K/mm3 (0.00-0.23); BASOPHILS PERCENT AUTO 0 % (0-2); EOSINOPHILS ABSOLUTE AUTO 0.23 K/mm3 (0.00-0.68); EOSINOPHILS PERCENT AUTO 2 % (0-6); Hematocrit 33.1 % (33.0-51.0); Hemoglobin 10.7 g/dL (11.5-16.0); IMMATURE GRAN ABSOLUTE AUTO 0.04 K/mm3 (0.00-0.10); IMMATURE GRAN PERCENT AUTO 0 % (0-1); LYMPHOCYTES ABSOLUTE AUTO 2.51 K/mm3 (0.84-5.20); LYMPHOCYTES PERCENT AUTO 19 % (21-46); MONOCYTES PERCENT AUTO 7 % (4-13); Mean Corpuscular HGB 31.1 pg (26.0-34.0); Mean Corpuscular HGB Conc 32.3 g/dL (31.5-36.5); Mean Corpuscular Volume 96 fL (80-100); Mean Platelet Volume 10.8 fL (9.1-12.4); NEUTROPHILS ABSOLUTE AUTO 9.22 K/mm3 (1.96-9.15); NEUTROPHILS PERCENT AUTO 71 % (41-73); Platelet Count 219 K/mm3 (150-400); RDW Coefficient Variation 14.6 % (11.7-14.2); RDW Standard Deviation 51.1 fL (35.1-46.3); Red Blood Cell Count 3.44 M/mm3 (3.80-5.20); White Blood Cell Count 12.94 K/mm3 (4.00-11.30)
[2023-04-25 06:07] LABS: Albumin, Blood 2.7 g/dL (3.4-5.0); Anion Gap 7 mmol/L (6-16); Blood Urea Nitrogen 74 mg/dL (8-24); Bun/Creatinine Ratio 30.8 (12.0-20.0); CO2, Blood 20 mmol/L (21-32); Calcium, Blood 8.1 mg/dL (8.5-10.1); Chloride, Blood 114 mmol/L (98-108); Glomerular Filtration Rate 19 (60-); Glucose, Blood 117 mg/dL (70-99); Magnesium, Blood 1.3 mg/dL (1.6-2.4); Potassium, Blood 4.2 mmol/L (3.5-5.5); Sodium, Blood 141 mmol/L (136-145)
--- NOTE | 2023-04-25 07:19 | NUR ---
SHIFT SUMMARY A/O VSS PT BACK FROM CXRAY PAIN 01/21 MD NOTIFIED AND ADDITIONAL MEDICATION RECEIVED. PT HAD SOME PAIN RELIEF AND WAS ABLE TO SLEEP MOST OF THE NIGHT. DAUGHTER CALLED AND I EXPLAIN PT CONDITION AND EVENING, SHE WILL BE BACK THIS AFTERNOON. PT NPO FOR POSSIBLE CHEST TUBE PLACEMENT, WHEN ASKED IF NEEDING MORE PAIN MEDICATION PT REFUSED. WILL CONT TO MONITOR.
[2023-04-25 07:31] VITALS: BP 114/58
--- NOTE | 2023-04-25 17:48 | NUR ---
SHIFT BRYAN PT A&OX3-4, HAD RUN OF SVT IN THE 140S, NOTIFIED BY IDALIA CALVILLO, TOLERATING PO, INCONTINENT, ON 2L O2 NC, AND DENIED NEED FOR PAIN MEDICATION THIS SHIFT. 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 MEDS HELD THIS AM FOR POSSIBLE CHEST TUBE PROCEDURE. PROCEDURE NOT PERFORMED. PLAN TO USE INCENTIVE SPRIROMETER. PT EDUCATED AND ENCOURAGED TO USE INCENTIVE SPIROMETER T/O SHIFT. CALL LIGHT IS WITHIN REACH AND PT ABLE TO MAKE NEEDS KNOWN.
[2023-04-25 19:32] VITALS: BP 126/60
[2023-04-26 02:23] VITALS: BP 112/64
[2023-04-26 05:46] LABS: Hemoglobin 11.1 g/dL (11.5-16.0); Mean Corpuscular HGB 31.2 pg (26.0-34.0); Mean Corpuscular HGB Conc 32.6 g/dL (31.5-36.5); Mean Corpuscular Volume 96 fL (80-100); Mean Platelet Volume 10.6 fL (9.1-12.4); Platelet Count 199 K/mm3 (150-400); RDW Coefficient Variation 14.6 % (11.7-14.2); RDW Standard Deviation 50.7 fL (35.1-46.3); Red Blood Cell Count 3.56 M/mm3 (3.80-5.20); White Blood Cell Count 12.45 K/mm3 (4.00-11.30)
--- NOTE | 2023-04-26 06:35 | NUR ---
SHIFT SUMMARY PATIENT ALERT AND ORIENTED X4. 2 ASSIST TO THE BEDSIDE COMMODE. MEDICATED PER EMAR FOR PAIN. ON 2 LITERS O2 VIA NC. VITAL SIGNS STABLE. NO ACUTE ISSUES NOTED OVERNIGHT.
[2023-04-26 06:36] LABS: Bun/Creatinine Ratio 31.5 (12.0-20.0); Calcium, Blood 8.3 mg/dL (8.5-10.1); Creatinine, Blood 2.22 mg/dL (0.40-1.00); Potassium, Blood 4.9 mmol/L (3.5-5.5)
[2023-04-26 07:12] VITALS: BP 124/57
--- NOTE | 2023-04-26 12:05 | NUR ---
CALLED DR LOUIS- GEN SURG DR AMARAL CAME TO SEE THE PT AND STATED SHE IS GOING TO SIGN OFF THE PT DOES NOT NEED A CHEST TUBE. MD AWARE. IV INFILTRATED, ORDER RECIEVED TO DC TELE AND IV ABX, NO IV ACCESS NEEDED ORDERED WELL.
[2023-04-26 14:58] VITALS: BP 109/54
--- NOTE | 2023-04-26 17:55 | NUR ---
SHIFT SUMMARY- PT ALERT AND ORIENTED, NO ACUTE CHANGE TODAY. DENIED THE NEED FOR PAIN MANAGEMENT MEDS. GEN SURGERY SIGNED OFF TODAY AND STATED THE PT DOES NOT NEED A CHEST TUBE AT THIS TIME. PT HAS BEEN USING THE INCENTIVE SPIROMETER AT THE BEDSIDE TODAY. PT IN BED, CALL LIGHT IN REACH NO S&S OF DISTRESS AT THIS TIME.
[2023-04-26 19:52] VITALS: BP 109/68
[2023-04-27 04:35] VITALS: BP 131/76
--- NOTE | 2023-04-27 05:02 | NUR ---
SHIFT SUMMARY PT A/O, BUT CAN BE FORFETFUL AT TIMES. CALM/COOPERATIVE AND ABLE TO MAKE NEEDS KNOWN. PT ON 1L OXYGEN NC. INCREASED PAIN WITH MOVEMENT. MEDICATED PER SEP. GOOD APPETITE. SLEPT WELL IN BETWEEN CARE. PLAN IS TO D/C TO REHAB FACILITY. ROUNDING COMPLETED. CONTINUITY OF CARE ENDORSED TO ON COMING NURSE.
[2023-04-27 05:47] LABS: Hematocrit 30.3 % (33.0-51.0); Hemoglobin 9.5 g/dL (11.5-16.0); Mean Corpuscular HGB 30.6 pg (26.0-34.0); Mean Corpuscular HGB Conc 31.4 g/dL (31.5-36.5); Mean Corpuscular Volume 98 fL (80-100); Mean Platelet Volume 9.7 fL (9.1-12.4); Platelet Count 203 K/mm3 (150-400); RDW Coefficient Variation 14.6 % (11.7-14.2); RDW Standard Deviation 52.6 fL (35.1-46.3); White Blood Cell Count 10.15 K/mm3 (4.00-11.30)
[2023-04-27 06:21] LABS: Bun/Creatinine Ratio 34.4 (12.0-20.0); Calcium, Blood 8.1 mg/dL (8.5-10.1); Creatinine, Blood 1.89 mg/dL (0.40-1.00); Magnesium, Blood 1.6 mg/dL (1.6-2.4); Potassium, Blood 4.6 mmol/L (3.5-5.5)
[2023-04-27 07:21] VITALS: BP 122/68
--- NOTE | 2023-04-27 09:17 | NUR ---
CALLED DR KWONG- CANDI ORDER FOR IV RECEPHIN. PT HAS ORDER FOR NO IV ACCESS. NO IVF WAS GIVEN T/O THE NIGHT HGB DROPPED FROM 11 TO 9.5. PT HAS LEVENOX ORDERED. RECIEVED ORDER FOR IVF, IV INSERTION, DC LOVENOX AND ORDER SCD'S. CHEST XRAY ORDERED WELL TO SEE IF HEMOTHORAX GOT WORSE.
[2023-04-27 16:56] VITALS: BP 125/59
--- NOTE | 2023-04-27 17:55 | NUR ---
SHIFT SUMMARY- PT PLACED BACK ON IVF AND ABX TODAY, HGB RECHECK IN THE AM. ML IS FOR SNF AT DISCHARGE. PT AND FAMILY HAVE REQUESTED [facility]. PT TITRATED DOWN TO ROOM AIR THIS AM, O2 SATS MAINTAIN GREATER THAN 90% ON ROOM AIR. PT STATES PAIN IS WELL MANAGED AT THIS TIME. PT IS WORKING WITH PHYSICAL THERAPY HERE. SHE WAS ABLE TO TRANSFER TO THE BS 1PA. PT HAS NOT HAD A BM IN SEVERAL DAYS GAVE PRN MIRALAX TODAY, NO RESULT YET. WILL SPEAK TO DR KWONG TOMORROW IF STILL NO RESULT. PT IN BED, CALL LIGHT IN REACH NO S&S OF DISTRESS AT THIS ITME, PULSE-OX IN PLACE.
[2023-04-27 19:46] VITALS: BP 119/61
[2023-04-28 04:28] VITALS: BP 140/85
[2023-04-28 06:00] LABS: Hematocrit 33.4 % (33.0-51.0); Mean Corpuscular HGB 30.9 pg (26.0-34.0); Mean Corpuscular HGB Conc 32.9 g/dL (31.5-36.5); Mean Corpuscular Volume 94 fL (80-100); Mean Platelet Volume 11.5 fL (9.1-12.4); Platelet Count 201 K/mm3 (150-400); RDW Coefficient Variation 14.3 % (11.7-14.2); RDW Standard Deviation 48.8 fL (35.1-46.3); Red Blood Cell Count 3.56 M/mm3 (3.80-5.20); White Blood Cell Count 11.96 K/mm3 (4.00-11.30)
[2023-04-28 06:29] LABS: Albumin, Blood 2.5 g/dL (3.4-5.0); Anion Gap 7 mmol/L (6-16); Blood Urea Nitrogen 47 mg/dL (8-24); Bun/Creatinine Ratio 30.5 (12.0-20.0); CO2, Blood 22 mmol/L (21-32); Calcium, Blood 8.4 mg/dL (8.5-10.1); Chloride, Blood 112 mmol/L (98-108); Creatinine, Blood 1.54 mg/dL (0.40-1.00); Glomerular Filtration Rate 33 (60-); Glucose, Blood 107 mg/dL (70-99); Phosphorus, Blood 3.7 mg/dL (2.5-4.9); Potassium, Blood 4.5 mmol/L (3.5-5.5); Sodium, Blood 141 mmol/L (136-145)
[2023-04-28 07:19] VITALS: BP 144/73
[2023-04-28 15:48] VITALS: BP 135/73
--- NOTE | 2023-04-28 19:34 | NUR ---
SHIFT SUMMARY- PT HAD AN EXTRA LARGE BM TODAY THAT WAS SOFT BUT FORMED, NO ACUTE CHANGES T/O THE DAY. PT REMAINS ON ROOM AIR, NO S&S OF DISTRESS, SHE DOES HOLD HER BREATH AT TIMES WHEN SHE IS MOVING IN BED. PT IN BED, BEDSIDE REPORT COMPLETED NO S&S OF DISTRESS NOTED AT THE TIME OF REPORT. PLAN IS TO DC TO NURSING AND REHAB.
[2023-04-28 20:20] VITALS: BP 134/64
--- NOTE | 2023-04-29 03:08 | NUR ---
LATE CHART NOTE FROM PREVIOUS SECRETARIAL STENOGRAPHER (04/28/23) MRS WATTS IS MUCH MORE ACTIVE TONIGHT THAN THE NIGHTS PREVIOUS. ABLE TO TRANSFER ONTO THE BEDSIDE COMMODE WITH ONE ASSIST AND FWW. NO BOWEL MOVEMENT (EVEN AFTER MOM, SENNA/COLACE AND MIRALAX) OVERNIGHT. PATIENT ANXIOUS TO GO TO [facility] FOR REHAB AND STRENGTHENING
[2023-04-29 03:58] VITALS: BP 148/78
--- NOTE | 2023-04-29 05:08 | NUR ---
SHIFT SUMMARY MATEO WAS ALERT AND FULLY ORIENTED AT THE START OF SHIFT AND PLEASANT/COOPERATIVE W/ CARE. PT HAD NO ACUTE CHANGES IN CONDITION THIS SHIFT. SHE SLEPT THROUGH THE ENTIRE SHIFT AND MAINTAINED O2 SATS AROUND 95% ON ROOM AIR. PT HAS NO SIGNIFICANT COMPLAINTS AND IS RESTING IN BED AT A LOW POSITION WITH THE CALL LIGHT IN REACH.
[2023-04-29 07:48] VITALS: BP 145/85
[2023-04-29 08:32] LABS: Hematocrit 31.5 % (33.0-51.0); Hemoglobin 10.2 g/dL (11.5-16.0); Mean Corpuscular HGB 30.6 pg (26.0-34.0); Mean Corpuscular HGB Conc 32.4 g/dL (31.5-36.5); Mean Corpuscular Volume 95 fL (80-100); Mean Platelet Volume 9.9 fL (9.1-12.4); Platelet Count 280 K/mm3 (150-400); RDW Coefficient Variation 14.3 % (11.7-14.2); RDW Standard Deviation 48.8 fL (35.1-46.3); Red Blood Cell Count 3.33 M/mm3 (3.80-5.20); White Blood Cell Count 12.16 K/mm3 (4.00-11.30)
[2023-04-29 08:51] LABS: Bun/Creatinine Ratio 26.2 (12.0-20.0); Calcium, Blood 8.5 mg/dL (8.5-10.1); Creatinine, Blood 1.3 mg/dL (0.40-1.00); Potassium, Blood 4.9 mmol/L (3.5-5.5)
[2023-04-29 16:24] VITALS: BP 144/77
--- NOTE | 2023-04-29 17:29 | NUR ---
SHIFT SUMMARY: PT IS AN 82 YEAR OLD FEMALE WHO IS PLEASANT AND COOPERATIVE. SHE HAS BEEN ALERT AND ORIENTED X4 AND UP TO THE BEDSIDE CHAIR AND RESTROOM TODAY. PAIN OF HER RIGHT SIDE HAS BEEN MANAGEABLE TODAY AND PATIENT HAS REQUESTED ORAL PAIN MEDICATION ONCE WITH GOOD BENEFIT. SHE HAS BEEN EATING, DRINKING, AND ELIMATING WELL. SHE IS IN BED WHICH IS AT IT'S LOWEST POSITION, CALL LIGHT WITHIN REACH, AND NOT DISPLAYING ANY SIGNS OR SYMPTOMS OF DISTRESS. PLAN TO DISCHARGE TO SNF. PLAN OF CARE ONGOING.
[2023-04-29 20:16] VITALS: BP 148/80
--- NOTE | 2023-04-30 04:22 | NUR ---
SHIFT SUMMARY: PT IS ADMITTED FOR PNEUMONIA WITH RIGHT RIB FRACTURES. IS A FULL CODE AND IS ALERT AND ABLE TO MAKE NEEDS KNOWN. ADL S ARE 1 PERSON ASSIST. WAS GIVEN PRN PAIN X1 THIS SHIFT. IS TO START COZAAR QAM. IV TO LEFT WRIST IS PATENT AND WAS FLUSHED WITH 5ML NS.
[2023-04-30 04:45] VITALS: BP 153/86
[2023-04-30 08:11] VITALS: BP 143/81
[2023-04-30] MEDS ORDERED: ACET500 PO (11:23)
[2023-04-30] MEDS ORDERED: GUAI600T33 PO (11:25)
[2023-04-30] MEDS ORDERED: PAIN RELIEF1 EACH TOP (11:26)
[2023-04-30] MEDS ORDERED: MIRALAX17 GM PO (11:39)
[2023-04-30] MEDS ORDERED: TRAM50 PO (11:40)
[2023-04-30 14:11] LABS: SARS-Cov-2 (COVID-19) PCR, MMC NEGATIVE (NEGATIVE)
--- NOTE | 2023-04-30 17:16 | NUR ---
DISCHARGE NOTE: PT SHOWERED, BELONGINGS COLLECTED, AND DISCHARGE PACKET GIVEN TO TRANSPORTER TO [facility]. PT TRANSFERRED VIA WHEECHAIR. REPORT GIVEN TO TRISTEN AT [facility] ON PATIENT. NO QUESTIONS OR CONCERNS.
== END 2023-04-30 16:05 | DRG 871 ==
LOC: ER 10:10 → MEDS 14:09
PROVIDERS: Family Medicine; Internal Medicine; Physician Assistant; ADMIT Internal Medicine
DX: A41.9 Sepsis, unspecified organism (principal); J18.9 Pneumonia, unspecified organism; N17.0 Acute kidney failure with tubular necrosis; J96.01 Acute respiratory failure with hypoxia; S27.2XXA Traumatic hemopneumothorax, initial encounter; S22.41XA Multiple fractures of ribs, right side, initial encounter for closed fracture; N25.81 Secondary hyperparathyroidism of renal origin; J98.11 Atelectasis; R65.20 Severe sepsis without septic shock; N18.30 Chronic kidney disease, stage 3 unspecified; Z11.52 Encounter for screening for COVID-19; D72.829 Elevated white blood cell count, unspecified; I12.9 Hypertensive chronic kidney disease with stage 1 through stage 4 chronic kidney disease, or unspecified chronic kidney disease; J30.1 Allergic rhinitis due to pollen; E78.5 Hyperlipidemia, unspecified; W18.30XA Fall on same level, unspecified, initial encounter; G89.29 Other chronic pain; D63.1 Anemia in chronic kidney disease; M54.9 Dorsalgia, unspecified; M25.569 Pain in unspecified knee; E03.9 Hypothyroidism, unspecified; Y92.012 Bathroom of single-family (private) house as the place of occurrence of the external cause; Z86.73 Personal history of transient ischemic attack (TIA), and cerebral infarction without residual deficits; Z74.09 Other reduced mobility; Z91.048 Other nonmedicinal substance allergy status; Z90.49 Acquired absence of other specified parts of digestive tract; Z79.82 Long term (current) use of aspirin
CPT/HCPCS: 36415; 71045; 71046; 80048; 80053; 80069; 83605; 83735; 84145; 85025; 85027; 87040; 93005; 93010; 94762; 96361; 96365; 96375; 97110; 97116; 97162; 97530; 99284-25; A9270; J0696; J1170; J1650; J3010; J3475; J7030; Q2036; U0002

== ENCOUNTER 2023-06-06 19:49 | Inpatient (IN) | payer MEDICARE ==
[~2023-06-06] VITALS: Ht 165.1 cm; Wt 71.6 kg
[~2023-06-06 19:49] MED LIST changes: +ACET500 PO; -ATOR20 PO; +GUAI600T33 PO; +IPRATROPIUM BRO15 ML; +LIPITOR80 MG PO; +MIRALAX17 GM PO; +PAIN RELIEF1 EACH TOP; +TRAM50 PO; -VITAMIN D PO; +Vitamin D1000 UNI1 PO
[2023-06-06 20:42] LABS: BASOPHILS ABSOLUTE AUTO 0.05 K/mm3 (0.00-0.23); BASOPHILS PERCENT AUTO 0 % (0-2); EOSINOPHILS ABSOLUTE AUTO 0.01 K/mm3 (0.00-0.68); EOSINOPHILS PERCENT AUTO 0 % (0-6); Hematocrit 34.8 % (33.0-51.0); Hemoglobin 11.3 g/dL (11.5-16.0); IMMATURE GRAN ABSOLUTE AUTO 0.18 K/mm3 (0.00-0.10); IMMATURE GRAN PERCENT AUTO 1 % (0-1); LYMPHOCYTES ABSOLUTE AUTO 1.14 K/mm3 (0.84-5.20); LYMPHOCYTES PERCENT AUTO 4 % (21-46); MONOCYTES ABSOLUTE AUTO 1.37 K/mm3 (0.16-1.47); MONOCYTES PERCENT AUTO 5 % (4-13); Mean Corpuscular HGB 30.5 pg (26.0-34.0); Mean Corpuscular HGB Conc 32.5 g/dL (31.5-36.5); Mean Corpuscular Volume 94 fL (80-100); Mean Platelet Volume 11.1 fL (9.1-12.4); NEUTROPHILS ABSOLUTE AUTO 25.82 K/mm3 (1.96-9.15); NEUTROPHILS PERCENT AUTO 90 % (41-73); Platelet Count 249 K/mm3 (150-400); RDW Coefficient Variation 14.7 % (11.7-14.2); RDW Standard Deviation 50.5 fL (35.1-46.3); White Blood Cell Count 28.57 K/mm3 (4.00-11.30)
[2023-06-06 21:01] LABS: Albumin, Blood 2.5 g/dL (3.4-5.0); Albumin/Globulin Ratio 0.5 (0.8-1.8); Bilirubin, Total 0.3 mg/dL (0.1-1.0); Bun/Creatinine Ratio 16.5 (12.0-20.0); Calcium, Blood 8.5 mg/dL (8.5-10.1); Creatinine, Blood 2.06 mg/dL (0.40-1.00); Globulin, Blood 4.6 g/dL (2.2-4.0); Potassium, Blood 4.2 mmol/L (3.5-5.5); Total Protein, Blood 7.1 g/dL (6.4-8.2)
[2023-06-06 21:29] LABS: Influenza A, PCR NEGATIVE (NEGATIVE); Influenza B, PCR NEGATIVE (NEGATIVE); Resp Syncytial Virus, PCR NEGATIVE (NEGATIVE); SARS-Cov-2 (COVID-19) PCR, MMC NEGATIVE (NEGATIVE)
[2023-06-07 01:14] VITALS: BP 145/84
[2023-06-07 03:58] VITALS: BP 123/93
--- NOTE | 2023-06-07 04:21 | NUR ---
SHIFT SUMMARY/ADMIT NOTE PT ADMITTED FOR PNEUMONIA/SEPSIS. FULL CODE. PLAN IS FOR IV ANTIB RX, IV FLUIDS. TELEMETRY: TACH @ 112. ER HANDOFF RECEIVED FROM HEALTHCARE REPRESENTATIVE JO. PERSONAL POSSESSIONS WITH PATIENT. IV FLUIDS INFUSING. SHE LIVES ALONE, BUT HAS A CAREGIVER FOR 8 HOURS A DAY. RECENT HX OF PNEUMONIA, FRACTURED RIBS. HER COUGH IS NON-PRODUCTIVE. RENAL DIET. HX OF CKD3. HER GFR IS 23. CREATININE IS 2.06. 4 LPM O2 HERE, ON RA AT HOME. CALL BUTTON WITHIN REACH. BED ALARM ON SHE HAS A HX OF FALLS
[2023-06-07 04:53] LABS: Albumin/Globulin Ratio 0.5 (0.8-1.8); Bilirubin, Total 0.3 mg/dL (0.1-1.0); Bun/Creatinine Ratio 17.7 (12.0-20.0); Creatinine, Blood 1.98 mg/dL (0.40-1.00); Potassium, Blood 4.2 mmol/L (3.5-5.5)
[2023-06-07 05:20] LABS: BASOPHILS ABSOLUTE AUTO 0.04 K/mm3 (0.00-0.23); BASOPHILS PERCENT AUTO 0 % (0-2); EOSINOPHILS ABSOLUTE AUTO 0.01 K/mm3 (0.00-0.68); EOSINOPHILS PERCENT AUTO 0 % (0-6); Hematocrit 31.5 % (33.0-51.0); Hemoglobin 10.1 g/dL (11.5-16.0); IMMATURE GRAN ABSOLUTE AUTO 0.09 K/mm3 (0.00-0.10); IMMATURE GRAN PERCENT AUTO 0 % (0-1); LYMPHOCYTES ABSOLUTE AUTO 1.18 K/mm3 (0.84-5.20); LYMPHOCYTES PERCENT AUTO 5 % (21-46); MONOCYTES ABSOLUTE AUTO 1.24 K/mm3 (0.16-1.47); MONOCYTES PERCENT AUTO 6 % (4-13); Mean Corpuscular HGB 31.1 pg (26.0-34.0); Mean Corpuscular HGB Conc 32.1 g/dL (31.5-36.5); Mean Corpuscular Volume 97 fL (80-100); Mean Platelet Volume 10.4 fL (9.1-12.4); NEUTROPHILS ABSOLUTE AUTO 19.83 K/mm3 (1.96-9.15); NEUTROPHILS PERCENT AUTO 89 % (41-73); Platelet Count 213 K/mm3 (150-400); RDW Coefficient Variation 14.7 % (11.7-14.2); RDW Standard Deviation 52.5 fL (35.1-46.3); Red Blood Cell Count 3.25 M/mm3 (3.80-5.20); White Blood Cell Count 22.39 K/mm3 (4.00-11.30)
[2023-06-07 07:18] VITALS: BP 163/83
--- NOTE | 2023-06-07 10:14 | NUR ---
NOTES: PATIENT ON TELE, SR HR IN THE 90'S BPM c OT EPISODE OF SVT RIGHT SHIFT CHANGED PER QUALITY IMPROVEMENT ENGINEER. AT AROUND 0950, RECEIVED A VOCERA CALL FROM [employer], PATIENT HR WAS IN THE 130'S-200'S BPM AND CONVERTED TO AFIB. NOTIFIED DR. BREWSTER DURING PATIENT ROUNDING REGARDING THIS ISSUES. PER DR. BREWSTER HE WILL REVIEWED PATIENT CHART AND CONTINUE TO MONITOR PATIENT. PATIENT DENIES CP/PRESSURE, DIZZINESS AND SOB. PATIENT REPORTS PAIN TO R RIB CAGE EVERYTIME SHE COUGHS. OTHERWISE, PATIENT DENIES ANY NEW CONCERN.
--- NOTE | 2023-06-07 11:07 | NUR ---
NOTE: RECEIVED A CALL FROM DR. BREWSTER VIA [employer]. PER DR. BREWSTER, HE WILL PLACED ORDER TO TRANSFER PATIENT TO PCU D/T HR STILL IN THE 150'S BPM. NOTIFIED LEAD LEVEL DESIGNER, [employer] CISNEROS.
[2023-06-07 12:00] LABS: International Normalized Ratio 1.11; Prothrombin Time Results 11.6 Sec (9.7-11.5)
--- NOTE | 2023-06-07 12:35 | NUR ---
TRANSFERRED NOTE: PATIENT TRANSFERRED TO PCU RM 15 AT AROUND 1210 VIA BED. REPORT GIVEN VIA TELEPHONE TO DATA PROCESSING CLERK, GAVE REGARDING PATIENT CONDITION AND NOTIFIED DAUGHTER FLORENCE REGARDING THE TRANSFERRED. ALL PAIENT PERSONAL BELONGINGS WERE SENT c THE PATIENT.
--- NOTE | 2023-06-07 13:38 | NUR ---
TRANSFER NOTE: Pt arrived to room PCU 15 from medical floor in bed. Pt is alert, oriented to self, place, situation but seems very forgetful. LS diminished with fine rhonchi throughout. BT positive. HR irregular and tachycardic rate in 170's at time of arrival. Denies chest pain but does complain of shortness of breath. PUlses palp. IV no longer flushing. Discontinued and new IV placed in L FA and Powerglide placed in MARISOL. Cardizem was started at 1225, rate of 10ml/hr. While placing powerglide Pt converted to Sinus Tach, rate 105-115. EKG done to verifiy. Gtt was discontinued at 1330. Critial Magnesium level was called to physician and order obtained. Pt resting comfortably in bed. Denies needs. Bed alarm is on, call light is in reach. WIll continue to monitor.
[2023-06-07 15:56] VITALS: BP 109/72
[2023-06-07 17:58] LABS: Source, Urine Straight Cath
[2023-06-07 18:10] LABS: Appearance, Urine Cloudy (Clear); Bilirubin, Urine Neg (Neg); Blood, Urine 1+ (Neg); Color, Urine Yellow (P-Yellow); Glucose Qualitative, Urine Neg (Neg); Ketones, Urine Neg (Neg); Leukocyte Esterase, Urine 3+ (Neg); Nitrite, Urine Neg (Neg); Protein, Urine 2+ (Neg); Specific Gravity, Urine 1.015 (1.003-1.022); Urobilinogen, Urine NORM (Normal)
--- NOTE | 2023-06-07 18:10 | NUR ---
Assumed care of patient at approx 1345. No acute changes noted. Pt reporting rib pain, medicated per emar. Pt up with 1 person assist and walker to bsc. Urine specimen sent. Pt continues in sinus 90-100's, bp stable. Other vss. No other acute changes noted. Will continue to monitor.
[2023-06-07 18:16] LABS: White Blood Cells, Urine TNTC /hpf (0-5)
[2023-06-07 18:17] LABS: Bacteria Many /hpf; Squamous Epithelial Cells Few /hpf (Few); Transitional Epithelial Cells Few /hpf (0-Rare)
[2023-06-07 20:00] VITALS: BP 107/61
--- NOTE | 2023-06-07 21:26 | NUR ---
UPDATE 2016 THIS RN NOTIFIED FROM LAB OF POSITIVE BLOOD CULTURES. THIS RN NOTIFIED NOC RESIDENT. NO NEW ORDERS AT THIS TIME.
--- NOTE | 2023-06-07 21:26 | NUR ---
ASSUMPTION OF CARE THIS RN ASSUMED CARE OF PT AT 1900. REPORT FROM IDALIA VALDEZ. PT AWAKE IN HER ROOM, WATCHING TV. PT A&O X 2-3; PERIODS OF FORGETFULNESS NOTED. VSS AT THIS TIME. PT DENIES CP/PRESSURE, DENIES DIZZINESS OR PALPITATIONS. PT DOES REPORT MILD SOB EVEN WHILE AT REST AND ON 2 LPM VIA NC. SPO2 95% AT THIS TIME. THIS RN DOES NOT NOTE SOB OR DIFFICULTIES BREATHING. AFEBRILE AT THIS TIME. PT DENIES CONCERNS OR ISSUES GI/. ATTENDS IN PLACE AND DRY. HEPARIN INFUSING PER EMAR. IV SITE IN L FA INFILTRATED; HEPARIN DISCONNECTED AND SWITCHED TO OTHER PERIPHERAL IV LINE. ARM ELEVATED AND ICE PACK PLACE. REDNESS NOTED ON ARM AND AROUND IV SITE, MODERATE SWELLING. PT DENIES TENDERNESS OR PAIN. PT DENIES ANY NEEDS AT THIS TIME. CALL LIGHT IN REACH
--- NOTE | 2023-06-07 22:45 | NUR ---
UPDATE SECOND SET OF BLOOD CULTURES REPORTED TO BE POSITIVE. THIS RN NOTIFIED J2EE SOFTWARE ENGINEER BUT DID NOT CALL RESIDENT D/T ALREADY BEING NOTIFIED OF THE FIRST SET OF CULTURES.
[2023-06-08 00:30] VITALS: BP 96/53
[2023-06-08 04:13] LABS: BASOPHILS PERCENT AUTO 0 % (0-2); EOSINOPHILS ABSOLUTE AUTO 0.15 K/mm3 (0.00-0.68); EOSINOPHILS PERCENT AUTO 1 % (0-6); Hemoglobin 10.3 g/dL (11.5-16.0); IMMATURE GRAN ABSOLUTE AUTO 0.17 K/mm3 (0.00-0.10); IMMATURE GRAN PERCENT AUTO 1 % (0-1); LYMPHOCYTES PERCENT AUTO 9 % (21-46); MONOCYTES ABSOLUTE AUTO 1.31 K/mm3 (0.16-1.47); MONOCYTES PERCENT AUTO 6 % (4-13); Mean Corpuscular HGB 30.8 pg (26.0-34.0); Mean Corpuscular HGB Conc 32.2 g/dL (31.5-36.5); Mean Corpuscular Volume 96 fL (80-100); Mean Platelet Volume 10.7 fL (9.1-12.4); NEUTROPHILS ABSOLUTE AUTO 19.88 K/mm3 (1.96-9.15); NEUTROPHILS PERCENT AUTO 84 % (41-73); Platelet Count 283 K/mm3 (150-400); RDW Coefficient Variation 14.9 % (11.7-14.2); RDW Standard Deviation 52.7 fL (35.1-46.3); Red Blood Cell Count 3.34 M/mm3 (3.80-5.20); White Blood Cell Count 23.71 K/mm3 (4.00-11.30)
[2023-06-08 04:14] VITALS: BP 129/72
[2023-06-08 04:44] LABS: Bun/Creatinine Ratio 18.6 (12.0-20.0); Calcium, Blood 8.6 mg/dL (8.5-10.1); Creatinine, Blood 1.99 mg/dL (0.40-1.00); Magnesium, Blood 1.6 mg/dL (1.6-2.4)
--- NOTE | 2023-06-08 05:58 | NUR ---
SHIFT SUMMARY PT REMAINS A&O X2-3. VSS T/O SHIFT; HRR REMAINS SR W/RATE 70 - 80'S. HR DOES INCREASE 100'S - 1 TEENS WITH ACTIVITY. PT ASYMPTOMATIC DURING EVENTS OF INCREASED HR. PT REMAINS ON 2 LPM NC, PT STILL REPORTS MILD SOB WITH ACTIVITY ALTHOUGH THIS RN DID NOT NOTICE AND SPO2 MAINTAINED >94%. PT HAD AN UNEVENTFUL NIGHT, SLEPT WELL. NO ACUTE EVENTS OVERNIGHT. PT UP TO RESTROOM W/SBA AND FWW AND TOLERATED THIS WELL. NO BM THIS SHIFT. ABX PER EMAR. HEPARIN CURRENTLY ON STANDBY AT BEDSIDE D/T HIGH LAB RESULTS, THIS RN WILL RESTART HEPARIN PER ORDERS. L FA SITE WHERE PREVIOUS IV INFILTRATED REMAINS UNCHANGED, PT REPORTING MINIMAL PAIN/TENDERNESS. WILL UPDATE ONCOMING RN
[2023-06-08 06:53] VITALS: BP 127/78
--- NOTE | 2023-06-08 08:00 | NUR ---
Received in room report from Noc RN. Patient is awake and sitting up in bed. She is alert and oriented and is able to communicate her needs. She is on 1L )2 via NC and sats >90%. She MAEW and is is a SBA. She has 20ga IV to wr wrist and is flushed and SL'd. She has PowerGlide to MARISOL and is infusing Heparin per order, 16 units/kg/min.
--- NOTE | 2023-06-08 11:30 | NUR ---
Patient has had family present in room. She has been up in chair since breakfast. She received bath and linen change. She remains on 1L O2 via NC and sat >90%. She is a SBA with ambulation. She has had D5 Brickner by and assessed and she is now med status with tele. Heparin to be Dc'd when finished. She remains alert and oriented and is able to communicate all needs. She remains in SR with PAC's
--- NOTE | 2023-06-08 15:30 | NUR ---
Patient family back in room. Patient is up to chair for dinner with one assist. She MULLINS but slightly weak. RT turned off O2 and sats have been low 90%'s. Patient denies any current needs. She is forgetful at times and needs things repeated.
[2023-06-08 15:48] VITALS: BP 125/71
[2023-06-08 20:18] VITALS: BP 125/75
[2023-06-09] VITALS (7 sets, daily range): BP systolic 91–141; BP diastolic 58–89
[2023-06-09 04:08] LABS: BASOPHILS ABSOLUTE AUTO 0.06 K/mm3 (0.00-0.23); BASOPHILS PERCENT AUTO 0 % (0-2); EOSINOPHILS ABSOLUTE AUTO 0.41 K/mm3 (0.00-0.68); EOSINOPHILS PERCENT AUTO 2 % (0-6); Hematocrit 28.9 % (33.0-51.0); Hemoglobin 9.3 g/dL (11.5-16.0); IMMATURE GRAN ABSOLUTE AUTO 0.13 K/mm3 (0.00-0.10); IMMATURE GRAN PERCENT AUTO 1 % (0-1); LYMPHOCYTES ABSOLUTE AUTO 1.15 K/mm3 (0.84-5.20); LYMPHOCYTES PERCENT AUTO 6 % (21-46); MONOCYTES ABSOLUTE AUTO 1.25 K/mm3 (0.16-1.47); MONOCYTES PERCENT AUTO 6 % (4-13); Mean Corpuscular HGB 30.5 pg (26.0-34.0); Mean Corpuscular HGB Conc 32.2 g/dL (31.5-36.5); Mean Corpuscular Volume 95 fL (80-100); Mean Platelet Volume 10.2 fL (9.1-12.4); NEUTROPHILS ABSOLUTE AUTO 16.45 K/mm3 (1.96-9.15); NEUTROPHILS PERCENT AUTO 85 % (41-73); Platelet Count 281 K/mm3 (150-400); RDW Coefficient Variation 14.9 % (11.7-14.2); RDW Standard Deviation 51.9 fL (35.1-46.3); Red Blood Cell Count 3.05 M/mm3 (3.80-5.20); White Blood Cell Count 19.45 K/mm3 (4.00-11.30)
[2023-06-09 04:23] LABS: Calcium, Blood 8.6 mg/dL (8.5-10.1); Creatinine, Blood 1.95 mg/dL (0.40-1.00); Magnesium, Blood 1.4 mg/dL (1.6-2.4); Potassium, Blood 4.3 mmol/L (3.5-5.5)
--- NOTE | 2023-06-09 05:33 | NUR ---
END OF SHIFT NOTE NO ACUTE CHANGES THIS SHIFT. PT REMAINS ALERT, ORIENTED X2. PLEASANTLY CONFUSED BUT COOPERATIVE WITH ALL CARE. HR 100-110'S W/ OCCASIONAL INCREASES T0 130-150'S W/ MOVEMENT. BP STABLE, MAP >65. DENIES CHEST PAIN/PRESSURE. SPO2 >93% ON 1L NC. DYSPNEA OBSERVED W/ EXERTION. SMALL AMOUNT OF MUCOUS PRODUCTION THIS SHIFT; THICK, LIGHT YELLOW. AFEBRILE. UP TO BATHROOM W/ SBA AND FWW. NO BM THIS SHIFT. RESTLESS T/O NIGHT WITH MINIMAL SLEEP, UP TO CHAIR FOR SEVERAL HOURS. NO OTHER EVENTS. CALL LIGHT WITHIN REACH, BED IN LOWEST POSITION. BED ALARM ON FOR SAFETY. WILL REPORT TO ONCOMING RN.
--- NOTE | 2023-06-09 06:35 | NUR ---
UPDATE THIS RN NOTIFIED BY TELEMETRY THAT PT'S HR SUSTAINING 130-150'S WHILE PT IS SLEEPING. DIVERSITY SPECIALIST NEETU NOTIFIED , ORDERS RECEIVED FOR ONE TIME IV LOPRESSOR PUSH PER EMAR. LOPRESSOR ADMINISTERED PER ORDERS BY THIS RN.
--- NOTE | 2023-06-09 07:18 | NUR ---
Received in room report from Noc RN. Patient awakened easily in bed. She is alert and oriented and is able to communicate her needs. She is on 1L O2 via NC and sats >90%. She has 20ga IV to RW and is flushed and SL'd, and PowerGlide to MARISOL that is infusing Diltiazem 10 10mg/10ml/hr that was just started. She is a SBA with transfer and is able to MAEW.
--- NOTE | 2023-06-09 15:30 | NUR ---
Patients family has gone home and she wanted to be placed in recliner and has been sleeping for awhile. She is mostly oriented to conversation but when awakens thinks she is at home and wants to go in the other room and see family, but orients to re-direction. She is on 1L O2 via NC and sats low 90%.
--- NOTE | 2023-06-09 19:29 | NUR ---
Patient back in bed after going to bathroom with aid. She has been trying to rest and she has had only intermitent sleep. Suggested to Noc shift to [facility] care as to let her rest. She is currently on 1L O2 via NC and sats low 90%'s. She is SBA with transfer to bed or bathroom . MAEW but still weak. She has had ongoing productive cough and continues to use pickle regularly.
--- NOTE | 2023-06-09 22:59 | NUR ---
ASSUMPTION OF CARE THIS RN ASSUMED CARE AT APPROX 1915. PATIENT IS ALERT AND ORIENTED X3-4. EXPERIENCES EPISODES OF INCREASED CONFUSION/FORGETFULNESS. IS EASILY REORIENTATED. IS REPORTING INCREASED FATIGUE THIS EVENING, PLAN TO CLUSTER CARE TO ALLOW FOR INCREASED PERIODS OF REST. VSS. TELEMETRY SHOWING SINUS 70's. BP STABLE. DENIES CHEST PAIN OR PRESSURE. ONE EPISODE OF RATE INCREASE TO 100's-120's. PO METOPROLOL ADMINISTERED PER EMAR. IS CURRENTLY ON 1L VIA NASAL CANNULA, SATS >90%. IS A STAND BY ASSIST IN ROOM W/ FWW. CALL LIGHT IN REACH.
[2023-06-10 03:25] VITALS: BP 130/81
[2023-06-10 04:54] LABS: BASOPHILS ABSOLUTE AUTO 0.05 K/mm3 (0.00-0.23); BASOPHILS PERCENT AUTO 0 % (0-2); EOSINOPHILS ABSOLUTE AUTO 0.34 K/mm3 (0.00-0.68); EOSINOPHILS PERCENT AUTO 2 % (0-6); Hematocrit 29.8 % (33.0-51.0); Hemoglobin 9.6 g/dL (11.5-16.0); IMMATURE GRAN PERCENT AUTO 1 % (0-1); LYMPHOCYTES ABSOLUTE AUTO 1.38 K/mm3 (0.84-5.20); LYMPHOCYTES PERCENT AUTO 8 % (21-46); MONOCYTES ABSOLUTE AUTO 1.05 K/mm3 (0.16-1.47); MONOCYTES PERCENT AUTO 6 % (4-13); Mean Corpuscular HGB 30.4 pg (26.0-34.0); Mean Corpuscular HGB Conc 32.2 g/dL (31.5-36.5); Mean Corpuscular Volume 94 fL (80-100); Mean Platelet Volume 10.1 fL (9.1-12.4); NEUTROPHILS ABSOLUTE AUTO 13.53 K/mm3 (1.96-9.15); NEUTROPHILS PERCENT AUTO 82 % (41-73); Platelet Count 332 K/mm3 (150-400); RDW Standard Deviation 52.1 fL (35.1-46.3); Red Blood Cell Count 3.16 M/mm3 (3.80-5.20); White Blood Cell Count 16.45 K/mm3 (4.00-11.30)
--- NOTE | 2023-06-10 05:17 | NUR ---
SHIFT SUMMARY NO ACUTE CHANGES SINCE PREVIOUS ASSUMPTION OF CARE NOTE. PATIENT SLEPT PERIODICALLY THROUGHOUT SHIFT, EASILY AROUSABLE TO VERBAL STIMULI. EXPERIENCES INCREASED CONFUSION UPON AWAKENING, ABLE TO EASILY REORIENT. TELEMETRY SHOWING SINUS 80's-90's. RATE INCREASE TO 110's-120's WITH ACTIVITY, NONSUSTAINING. PATIENT ASYMPTOMATIC OF INCREASE. BP STABLE. REMAINS ON 1L VIA NASAL CANNULA, SATS >90%. FREQUENT COUGH, BECOMING MORE PRODUCTIVE. REMAINS A STAND BY ASSIST IN ROOM WITH FWW. VOIDING. NO BM THIS SHIFT. IS ABLE TO REPOSITION HERSELF IN BED. CALL LIGHT IN REACH. BED ALARM ON. WILL REPORT TO ONCOMING RN.
[2023-06-10 05:33] LABS: Bun/Creatinine Ratio 23.4 (12.0-20.0); Calcium, Blood 9.3 mg/dL (8.5-10.1); Creatinine, Blood 1.88 mg/dL (0.40-1.00); Free Thyroxine 1.29 ng/dL (0.70-1.60); Magnesium, Blood 2.2 mg/dL (1.6-2.4); Potassium, Blood 4.2 mmol/L (3.5-5.5); Thyroid Stimulating Hormone 0.349 uIU/mL (0.360-4.800)
[2023-06-10 07:05] VITALS: BP 105/67
--- NOTE | 2023-06-10 07:15 | NUR ---
Received in room report from Noc RN. Patient is up in chair and is able to communicate her needs. When waking up she has some short term confusion and re-orients quickly. She is on 2L O2 via NC and suzie >95%. She has ongoing productive cough she spits into tissue. She has fltter valve at bedside and uses frequently. She is SBA with ambulation from chair to bathroom or bed. MAEW but still slightly weak. She is currently SR 80's.
--- NOTE | 2023-06-10 11:54 | NUR ---
Patient has been up inchair and tolerated most of breakfast well. She tolerated am meds. at 1105 she converted back to A-Fib RVR [address] Holm and restarted cardizem gtt at 10mg/hr (11:28). Helped patient back to bed and she is sleeping currently. She was a little weaker with transfer and stated she was really tired and she has not slept well for days. She remains on 2L O2 via NC and sats low 90's%. She remains alert and able to communicate her needs.
[2023-06-10 12:00] VITALS: BP 104/66
--- NOTE | 2023-06-10 15:46 | NUR ---
Patient is transitioning from IV to PO Diltizem. Started 180 mg Diltizem PO daily. Sheis up getting up into shower and remains on 2L O2 via NC and sats >90%. She has been resting in bed since just after lunch and seems to be doing better
--- NOTE | 2023-06-10 18:44 | NUR ---
She is currently finally sleeping. She was up to bathroom for shower and when got back to bed was really tired. She remains on 2L O2 via NC and sats >90%. She transfers with FWW and SBA. She is independent in bed with comfort and positioning.She is able to communicate all her needs well, when awakened she might be briefly confused and re-orients well.
[2023-06-10 20:02] VITALS: BP 120/68
--- NOTE | 2023-06-10 23:30 | NUR ---
ASSUMPTION OF CARE NOTE THIS RN ASSUMED CARE AT APPROX 1915. PATIENT AWOKEN FROM SLEEP TO ADMINISTER EVENING MEDICATIONS, PERFORM ASSESSMENT. IS ALERT AND ORIENTED X3-4. CAN BE FORGETFUL AT TIMES, BED ALARM IN PLACE. REPORTS FEELING TIRED, PLAN TO CLUSTER CARE TO MINIMIZE INTERRUPTIONS. VSS. TELEMETRY SHOWING SINUS 60's-70's. DENIES CHEST PAIN OR PRESSURE. BP STABLE. ON 2L VIA NASAL CANNULA, SATS >90%. OCCASSIONAL PRODUCTIVE COUGH. PATIENT IS A STAND BY ASSIST IN ROOM WITH MOBILITY. PATIENT IS CURRENTLY SLEEPING. CALL LIGHT IN REACH.
[2023-06-11 02:36] VITALS: BP 134/77
[2023-06-11 04:41] LABS: Hematocrit 29.6 % (33.0-51.0); Hemoglobin 9.5 g/dL (11.5-16.0); Mean Corpuscular HGB 30.2 pg (26.0-34.0); Mean Corpuscular HGB Conc 32.1 g/dL (31.5-36.5); Mean Corpuscular Volume 94 fL (80-100); Mean Platelet Volume 10.3 fL (9.1-12.4); Platelet Count 368 K/mm3 (150-400); RDW Coefficient Variation 15.3 % (11.7-14.2); RDW Standard Deviation 52.4 fL (35.1-46.3); Red Blood Cell Count 3.15 M/mm3 (3.80-5.20); White Blood Cell Count 17.58 K/mm3 (4.00-11.30)
[2023-06-11 05:01] LABS: Bun/Creatinine Ratio 24.6 (12.0-20.0); Creatinine, Blood 1.75 mg/dL (0.40-1.00); Potassium, Blood 4.5 mmol/L (3.5-5.5)
--- NOTE | 2023-06-11 05:01 | NUR ---
SHIFT SUMMARY NO ACUTE CHANGES SINCE PREVIOUS ASSUMPTION OF CARE NOTE. PATIENT SLEPT THROUGHOUT, EASILY AROUSABLE TO VERBAL STIMULI. VS REMAIN STABLE. TELEMETRY CONTINUING TO SHOW SINUS 60's-70's. NO RATE INCREASE NOTED W/ ACTIVITY. BP STABLE. REMAINS ON 2L VIA NASAL CANNULA, SATS >90%. CONTINUED OCCASSIONAL PRODUCTIVE COUGH NOTED. UP TO RESTROOM WITH STAND BY ASSIST FWW. VOIDING. CALL LIGHT IN REACH. BED ALARM ON. PATIENT IS CURRENTLY SLEEPING, RESPIRATIONS EVEN. NO SIGNS OF DISTRESS NOTED. WILL REPORT TO ONCOMING RN.
[2023-06-11 07:59] VITALS: BP 135/77
--- NOTE | 2023-06-11 09:02 | NUR ---
Helped patient to call her daughter to arrange strip picker around 4 pm for discharge.
--- NOTE | 2023-06-11 10:39 | NUR ---
Pt is sleeping.
[2023-06-11] MEDS ORDERED: DILT180 PO (13:21)
[2023-06-11] MEDS ORDERED: ELIQUIS2.5 MG PO (13:21)
[2023-06-11] MEDS ORDERED: DOXY100 PO (13:22)
[2023-06-11 13:56] VITALS: BP 96/49
[2023-06-11 14:42] VITALS: BP 103/64
== END 2023-06-11 17:00 | disposition home health service (06) | DRG 871 ==
LOC: ER 19:49 → MEDS 19:50 → PCU 06-07 10:27 → MEDS 06-07 10:27 → PCU 06-07 12:07
PROVIDERS: Family Medicine; Internal Medicine; Student in an Organized Health Care Education/Training Program; ADMIT Student in an Organized Health Care Education/Training Program
DX: A41.9 Sepsis, unspecified organism (principal); J18.9 Pneumonia, unspecified organism; J96.01 Acute respiratory failure with hypoxia; N17.9 Acute kidney failure, unspecified; N18.4 Chronic kidney disease, stage 4 (severe); I50.22 Chronic systolic (congestive) heart failure; I13.0 Hypertensive heart and chronic kidney disease with heart failure and stage 1 through stage 4 chronic kidney disease, or unspecified chronic kidney disease; E87.21 Acute metabolic acidosis; E87.22 Chronic metabolic acidosis; M10.9 Gout, unspecified; E78.5 Hyperlipidemia, unspecified; R77.8 Other specified abnormalities of plasma proteins; G89.29 Other chronic pain; R79.89 Other specified abnormal findings of blood chemistry; M54.9 Dorsalgia, unspecified; I48.0 Paroxysmal atrial fibrillation; Z86.73 Personal history of transient ischemic attack (TIA), and cerebral infarction without residual deficits; Z79.82 Long term (current) use of aspirin; Z11.52 Encounter for screening for COVID-19; Z86.14 Personal history of Methicillin resistant Staphylococcus aureus infection
CPT/HCPCS: 0241U; 36415; 71046; 80048; 80053; 81001; 83605; 83735; 83880; 84145; 84439; 84443; 84484; 85025; 85027; 85610; 85730; 87040; 87070; 87077; 87086; 87185; 87186; 87205; 87449; 93005; 93010; 93306; 94640; 94664; 94760; 94762; 96361; 96365; 96367; 96372; 99285-25; A9270; C1751; G0378; J0456; J0696; J1644; J1650; J2543; J3370; J3475; J7030; J7050

== ENCOUNTER 2023-07-04 09:06 | Emergency (ER) | payer MEDICARE ==
[~2023-07-04] VITALS: Ht 165.1 cm; Wt 70.3 kg
[~2023-07-04 09:06] MED LIST changes: +DILT180 PO; +DOXY100 PO; +ELIQUIS2.5 MG PO
[2023-07-04 10:21] LABS: BASOPHILS ABSOLUTE AUTO 0.11 K/mm3 (0.00-0.23); BASOPHILS PERCENT AUTO 1 % (0-2); EOSINOPHILS ABSOLUTE AUTO 0.52 K/mm3 (0.00-0.68); EOSINOPHILS PERCENT AUTO 5 % (0-6); Hematocrit 35.7 % (33.0-51.0); Hemoglobin 11.2 g/dL (11.5-16.0); IMMATURE GRAN ABSOLUTE AUTO 0.02 K/mm3 (0.00-0.10); IMMATURE GRAN PERCENT AUTO 0 % (0-1); LYMPHOCYTES ABSOLUTE AUTO 1.53 K/mm3 (0.84-5.20); LYMPHOCYTES PERCENT AUTO 14 % (21-46); MONOCYTES ABSOLUTE AUTO 0.64 K/mm3 (0.16-1.47); MONOCYTES PERCENT AUTO 6 % (4-13); Mean Corpuscular HGB 30.5 pg (26.0-34.0); Mean Corpuscular HGB Conc 31.4 g/dL (31.5-36.5); Mean Corpuscular Volume 97 fL (80-100); Mean Platelet Volume 10.7 fL (9.1-12.4); NEUTROPHILS ABSOLUTE AUTO 8.03 K/mm3 (1.96-9.15); NEUTROPHILS PERCENT AUTO 74 % (41-73); Platelet Count 221 K/mm3 (150-400); RDW Coefficient Variation 16.1 % (11.7-14.2); RDW Standard Deviation 57.4 fL (35.1-46.3); Red Blood Cell Count 3.67 M/mm3 (3.80-5.20); White Blood Cell Count 10.85 K/mm3 (4.00-11.30)
[2023-07-04 10:41] LABS: Albumin, Blood 2.9 g/dL (3.4-5.0); Albumin/Globulin Ratio 0.8 (0.8-1.8); Bilirubin, Total 0.4 mg/dL (0.1-1.0); Bun/Creatinine Ratio 29.9 (12.0-20.0); Calcium, Blood 8.5 mg/dL (8.5-10.1); Creatinine, Blood 1.44 mg/dL (0.40-1.00); Globulin, Blood 3.8 g/dL (2.2-4.0); Potassium, Blood 4.5 mmol/L (3.5-5.5); Total Protein, Blood 6.7 g/dL (6.4-8.2)
[2023-07-04 10:45] VITALS: BP 169/96
[2023-07-04] MEDS ORDERED: Mupirocin22 GM TOP (11:07)
== END 2023-07-04 11:16 | disposition home or self-care (01) ==
LOC: ER 09:06
PROVIDERS: Emergency Medicine
DX: M79.89 Other specified soft tissue disorders (principal); N18.30 Chronic kidney disease, stage 3 unspecified; E78.5 Hyperlipidemia, unspecified; M10.9 Gout, unspecified; Z79.82 Long term (current) use of aspirin; Z79.899 Other long term (current) drug therapy; Z79.01 Long term (current) use of anticoagulants; Z79.891 Long term (current) use of opiate analgesic
CPT/HCPCS: 73630; 80053; 85025; 99283-25

== ENCOUNTER → 2024-01-30 | Outpatient (CLI) | payer MEDICARE ==
[~2024-01-30] MED LIST changes: +ALLO100 PO; +CEPACOL THROAT1 EAC1 MM; +Cefpodoxime Pr100 MG PO; +FAMO10 PO; +FURO40 PO; +Mupirocin22 GM TOP; +TOPROL XL25 MG PO; +VISBIOME 112.51 EACH PO
[2024-01-30 11:46] LABS: Source, Urine Clean Catch
[2024-01-30 13:18] LABS: Appearance, Urine Clear (Clear); Bilirubin, Urine Neg (Neg); Blood, Urine Neg (Neg); Color, Urine Yellow (P-Yellow); Glucose Qualitative, Urine Neg (Neg); Ketones, Urine Neg (Neg); Leukocyte Esterase, Urine 2+ (Neg); Nitrite, Urine Neg (Neg); Protein, Urine 1+ (Neg); Specific Gravity, Urine 1.015 (1.003-1.022); Urobilinogen, Urine NORM (Normal)
[2024-01-30 13:32] LABS: Bacteria Mod /hpf; Red Blood Cells, Urine 0-2 /hpf (0-2); Squamous Epithelial Cells Mod /hpf (Few)
== END ==
LOC: LAB SHORT 11:43 → LAB 11:43
PROVIDERS: Hospitalist
DX: I12.9 Hypertensive chronic kidney disease with stage 1 through stage 4 chronic kidney disease, or unspecified chronic kidney disease (principal); N18.32 Chronic kidney disease, stage 3b
CPT/HCPCS: 81001; 87077; 87086; 87186